=== PATIENT | female | born 2000 ===

== ENCOUNTER 2024-12-27 03:07 | Inpatient (IN) ==
[2024-12-27] MEDS ORDERED: LIDOCAINE 1% LOCAL 20 ML VIAL INFIL PRN (05:06)
[2024-12-27] MEDS ORDERED: OXYTOCIN 30 UNITS/NSS 30 UNITS/500 ML BAG IV PRN (05:06)
[2024-12-27 05:45] LABS: Hematocrit (blood only) 32.9 % (37.0-47.0); Hemoglobin 10.8 g/dl (12.0-16.0); Mean Corpuscular Hemoglobin 27.9 pg (25.0-34.0); Mean Corpuscular Hgb Conc 32.8 g/dL (32.0-36.0); Mean Platelet Volume 11.2 fL (9.4-12.4); Platelet Count 277 K/uL (130-400); RDW Standard Deviation 49.9 fL (36.4-46.3); Red Blood Count 3.87 M/uL (4.20-5.40); White Blood Count 11.72 K/ul (4.8-10.8)
[2024-12-27] MEDS: miSOPROStoL 50 MCG TAB PO ONE ×2 (10:44→13:48)
[2024-12-27] MEDS: LACTATED RINGER'S 1,000 ML IV PRN (20:49)
[2024-12-27] MEDS: OXYTOCIN 30 UNITS/NSS 30 UNITS/500 ML BAG IV PRN (20:50)
[2024-12-27] MEDS: BUTORPHANOL TARTRATE 1 MG/ML VIAL IV PRN (23:56)
--- NOTE | 2024-12-28 01:58 | Labor Progress Brief Note ---
Date of Service December 28, 2024 Assessment & Plan Admission and Anticipated Discharge Date Admission Date: December 27, 2024 Physical Exam Genitourinary: Manual OB Exam: + cervical dilation 7 cm, + cervical effacement 100%, + station 0 and + amniotic fluid ( scalp lead applied) clear OB Exam Monitor Tracing: + external FHT monitor used, + external uterine monitor used, + category I and + normal FHT variability Results & Data Vital Signs (Past 12 Hours) Vital Signs Temp Pulse Resp BP Pulse Ox 12/28/24 01:50 99 H 99 12/28/24 01:45 88 100 12/28/24 01:40 95 H 100 12/28/24 01:38 90 135/83 12/28/24 01:35 95 H 98 12/28/24 01:30 97 H 97 12/28/24 01:25 94 H 99 12/28/24 01:22 93 H 121/72 12/28/24 01:08 96 H 120/64 12/28/24 00:51 81 139/76 12/28/24 00:30 16 12/28/24 00:30 16 12/28/24 00:23 88 128/75 12/28/24 00:07 83 125/73 12/27/24 23:53 94 H 138/69 12/27/24 23:30 18 12/27/24 23:30 18 12/27/24 23:23 96 H 165/89 H 12/27/24 23:00 18 12/27/24 23:00 37.0 C 18 12/27/24 22:52 108 H 149/80 H 12/27/24 22:37 115 H 126/64 12/27/24 22:23 102 H 107/82 12/27/24 22:06 85 115/56 L 12/27/24 21:52 102 H 175/68 H 12/27/24 21:22 95 H 121/72 12/27/24 21:07 91 H 118/67 12/27/24 21:00 18 12/27/24 21:00 37.3 C 18 12/27/24 20:51 87 134/67 12/27/24 19:00 36.7 C 18 12/27/24 18:57 91 H 125/72 12/27/24 17:17 18 12/27/24 17:17 37.2 C 18 12/27/24 14:58 82 129/76 12/27/24 14:57 18 12/27/24 14:57 37.1 C 18
[2024-12-28] MEDS: LIDOCAINE 2%/EPINEPHRINE 1:200,000 20 ML PF ONE (02:32)
[2024-12-28] MEDS: BUPIVACAINE 0.25% PF 30 ML VIAL ONE (02:32)
[2024-12-28] MEDS: fentANYL 2 MCG/ML BUPIVacaine 0.125%-NSS 100ML BAG ONE (02:33)
[2024-12-28] MEDS: fentaNYL citrate PF 100 MCG/2 ML VIAL ONE (02:37)
--- NOTE | 2024-12-28 02:50 | Anesthesiology Consultation ---
Date of Service December 28, 2024 Assessment & Plan Chart Review Chart Review: Acceptable Risk for Labor Epidural Consults Requested none History Height/Weight Height: 5 ft 4 in Weight: 102.1 kg Allergies Allergy/AdvReac Type Severity Reaction Status Date / Time No Known Allergies Allergy Unverified 12/27/24 03:40 Medications Home Medications Medication Instructions Recorded Confirmed Last Taken ferrous fumarate-ascorbic 1 tab PO DAILY 12/27/24 12/27/24 Unknown acid-ascorbate sod 65 mg iron-125 mg tablet vitamin-ferrous sulfate 1 tab PO DAILY 12/27/24 12/27/24 Unknown 27 mg iron-folic acid 0.8 mg tablet Active Medications Generic Name Dose Route Start Last Admin Trade Name Freq PRN Reason Stop Dose Admin Butorphanol Tartrate 1 mg 12/27/24 10:42 12/27/24 23:56 Butorphanol Tartrate 1 Mg/Ml Vial IV 01/26/25 10:41 1 mg Q2HWA PRN Administration Pain Lactated Ringer's 1,000 mls @ 125 mls/hr 12/27/24 05:06 12/27/24 20:49 Lr IV 12/29/24 05:05 125 mls/hr .Q8H PRN Administration L&D Protocol Protocol Oxytocin 30 units in 500 mls @ 9 mls/hr 12/27/24 19:40 12/28/24 00:30 Pitocin 30 Units/Nss IV 12/29/24 19:39 0.54 units/hr .Q24H PRN 9 mls/hr Labor Induction/Augmentation Titration Protocol 0.54 UNITS/HR Past Medical History Medical History (Updated 12/27/24 @ 03:39 by Fatuma Machuca RN) Plantar fasciitis Anemia affecting Past Family History Family History (Updated 12/27/24 @ 03:43 by Fatuma Machuca, RN) Mother History of myocardial infarction Hyperlipidemia Past Surgical History Surgical History (Updated 12/27/24 @ 03:40 by Fatuma Machuca RN) No history of previous surgery Social History Smoking Status: Never smoker Hx Alcohol Use: No Hx Substance Use: No Physical Exam Vital Signs Last Vital Signs Temp 37.0 C 12/27/24 23:00 Pulse 111 H 12/28/24 02:45 Resp 16 12/28/24 00:30 BP 121/57 L 12/28/24 02:40 Pulse Ox 99 12/28/24 02:45 Testing Laboratory Results 12/27/24 05:26 Blood Type A Positive 12/27/24 05:26 Antibody Screen NEGATIVE 12/27/24 05:26
[2024-12-28] MEDS ORDERED: SODIUM CHLORIDE 0.9% PF INJ 10 ML VIAL EPI PRN (02:51)
[2024-12-28] MEDS ORDERED: fentaNYL citrate PF 100 MCG/2 ML VIAL EPI PRN (02:51)
[2024-12-28] MEDS ORDERED: diphenhydrAMINE 50 MG/ML VIAL IV PRN (02:51)
[2024-12-28] MEDS ORDERED: BUPIVACAINE 0.25% PF 30 ML VIAL EPI PRN (02:51)
[2024-12-28] MEDS ORDERED: NALOXONE HCL 0.4 MG/1 ML VIAL/CARP IV PRN (02:51)
[2024-12-28] MEDS ORDERED: NALOXONE HCL 1 MG in SODIUM CHLORIDE 0.9% 1,000 ML IV PRN (02:51)
[2024-12-28] MEDS ORDERED: ROPIVACAINE 0.5% PF 5 MG/ML 20 ML VIAL EPI PRN (02:51)
[2024-12-28] MEDS ORDERED: NALBUPHINE HCL INJ 10 MG/ML AMP IV PRN (02:51)
[2024-12-28] MEDS ORDERED: LIDOCAINE 2% MPF LOCAL 5 ML VIAL EPI PRN (02:51)
[2024-12-28] MEDS ORDERED: ePHEDrine sulfate 50 MG/ML AMP IV PRN (02:51)
[2024-12-28] MEDS: ePHEDrine sulfate 50 MG/ML AMP ONE (03:06)
[2024-12-28] MEDS: SODIUM CHLORIDE 0.9% PF INJ 10 ML VIAL ONE (03:06)
[2024-12-28] MEDS: BUPIVACAINE 0.25% PF 30 ML VIAL EPI STA (03:50)
[2024-12-28] MEDS: fentaNYL citrate PF 100 MCG/2 ML VIAL EPI STA (03:50)
[2024-12-28] MEDS: SODIUM CHLORIDE 0.9% PF INJ 10 ML VIAL EPI STA (03:50)
[2024-12-28] MEDS: LIDOCAINE 2%/EPINEPHRINE 1:200,000 20 ML PF EPI STA (03:50)
--- NOTE | 2024-12-28 09:11 | Labor Progress Brief Note ---
Date of Service December 28, 2024 Assessment & Plan Admission and Anticipated Discharge Date Admission Date: December 27, 2024 Physical Exam Genitourinary: Manual OB Exam: + cervical dilation 8 cm, + cervical effacement 100%, + station 0 and + amniotic fluid clear OB Exam Monitor Tracing: + scalp electrode used, + external uterine monitor used, + category I and + normal FHT variability Results & Data Vital Signs (Past 12 Hours) Vital Signs Temp Pulse Resp BP Pulse Ox 12/28/24 09:10 92 H 100 12/28/24 09:05 91 H 100 12/28/24 09:00 96 H 100 12/28/24 08:56 36.7 C 96 H 19 117/67 12/28/24 08:55 91 H 99 12/28/24 08:50 89 99 12/28/24 08:45 98 H 99 12/28/24 08:41 88 114/62 12/28/24 08:40 90 99 12/28/24 08:35 84 98 12/28/24 08:30 86 98 12/28/24 08:26 84 129/78 12/28/24 08:25 90 99 12/28/24 08:20 97 H 99 12/28/24 08:15 96 H 99 12/28/24 08:12 96 H 134/82 12/28/24 08:10 96 H 99 12/28/24 08:05 92 H 99 12/28/24 08:00 90 99 12/28/24 07:55 91 H 12/28/24 07:55 92 H 128/73 99 12/28/24 07:50 95 H 99 12/28/24 07:45 80 98 12/28/24 07:42 93 H 124/78 12/28/24 07:40 97 H 97 12/28/24 07:35 99 H 98 12/28/24 07:30 96 H 99 12/28/24 07:25 100 H 12/28/24 07:25 98 H 130/83 98 12/28/24 07:20 100 H 98 12/28/24 07:15 94 H 98 12/28/24 07:12 99 H 130/81 12/28/24 07:11 18 12/28/24 07:11 37.2 C 18 12/28/24 07:10 103 H 99 12/28/24 07:05 98 H 99 12/28/24 07:00 101 H 100 12/28/24 06:55 83 06 06:55 82 127/68 98 12/28/24 06:50 95 H 99 12/28/24 06:45 85 98 12/28/24 06:40 103 H 12/28/24 06:40 97 H 126/77 96 12/28/24 06:35 111 H 98 12/28/24 06:30 115 H 99 12/28/24 06:26 99 H 122/69 12/28/24 06:25 99 H 98 12/28/24 06:20 107 H 99 12/28/24 06:15 107 H 98 12/28/24 06:11 115 H 133/71 12/28/24 06:10 107 H 100 12/28/24 06:05 88 98 12/28/24 06:00 36.8 C 86 16 98 12/28/24 05:55 99 H 136/76 99 12/28/24 05:50 89 98 12/28/24 05:45 100 H 98 12/28/24 05:40 86 12/28/24 05:40 84 140/72 98 12/28/24 05:35 87 97 12/28/24 05:30 92 H 98 12/28/24 05:26 92 H 140/72 12/28/24 05:25 96 H 100 12/28/24 05:20 83 99 12/28/24 05:15 87 98 12/28/24 05:10 101 H 12/28/24 05:10 84 141/76 H 99 12/28/24 05:05 89 98 12/28/24 05:00 102 H 100 12/28/24 04:55 100 H 134/78 97 12/28/24 04:50 103 H 100 12/28/24 04:45 91 H 98 12/28/24 04:42 98 H 137/78 12/28/24 04:40 97 H 97 12/28/24 04:35 93 H 96 12/28/24 04:30 84 99 12/28/24 04:25 102 H 06 04:25 91 H 135/75 99 12/28/24 04:20 89 99 12/28/24 04:15 88 100 12/28/24 04:11 90 132/74 06/23/25 04:10 87 98 12/28/24 04:05 105 H 99 12/28/24 04:00 99 H 98 12/28/24 03:56 106 H 146/71 H 12/28/24 03:55 89 98 12/28/24 03:50 92 H 99 12/28/24 03:45 95 H 99 12/28/24 03:41 80 105/58 L 12/28/24 03:40 84 98 12/28/24 03:35 83 98 12/28/24 03:30 86 18 98 12/28/24 03:26 81 105/58 L 12/28/24 03:25 85 99 12/28/24 03:20 90 98 12/28/24 03:15 90 99 12/28/24 03:11 102 H 106/59 L 12/28/24 03:10 107 H 97 12/28/24 03:05 93 H 98 12/28/24 03:00 107 H 100 12/28/24 02:59 102 H 130/60 12/28/24 02:55 104 H 100 12/28/24 02:50 103 H 100 12/28/24 02:45 111 H 99 12/28/24 02:40 107 H 121/57 L 100 12/28/24 02:38 103 H 123/64 12/28/24 02:36 92 H 121/68 12/28/24 02:35 107 H 100 12/28/24 02:34 106 H 121/70 12/28/24 02:32 101 H 130/69 12/28/24 02:30 113 H 128/72 98 12/28/24 02:28 96 H 132/73 12/28/24 02:26 90 132/72 12/28/24 02:25 85 98 12/28/24 02:20 91 H 98 12/28/24 02:17 98 H 121/75 12/28/24 01:50 99 H 99 12/28/24 01:45 88 100 12/28/24 01:40 95 H 100 12/28/24 01:38 90 135/83 12/28/24 01:35 95 H 98 12/28/24 01:30 97 H 97 12/28/24 01:25 94 H 99 12/28/24 01:22 93 H 121/72 06/23/25 01:08 96 H 120/64 12/28/24 00:51 81 139/76 12/28/24 00:30 16 12/28/24 00:30 16 12/28/24 00:23 88 128/75 12/28/24 00:07 83 125/73 12/27/24 23:53 94 H 138/69 12/27/24 23:30 18 12/27/24 23:30 18 12/27/24 23:23 96 H 165/89 H 12/27/24 23:00 18 12/27/24 23:00 37.0 C 18 12/27/24 22:52 108 H 149/80 H 12/27/24 22:37 115 H 126/64 12/27/24 22:23 102 H 107/82 12/27/24 22:06 85 115/56 L 12/27/24 21:52 102 H 175/68 H 12/27/24 21:22 95 H 121/72
[2024-12-28] MEDS: fentANYL 2 MCG/ML BUPIVacaine 0.125%-NSS 100ML BAG EPI PRN (11:40)
[2024-12-28] MEDS ORDERED: HYDROCORTISONE ACETATE 25 MG SUPP PR PRN (16:10)
[2024-12-28] MEDS ORDERED: bisacodyL 10 MG SUPP PR PRN (16:10)
[2024-12-28] MEDS ORDERED: DIPHTHER/TETAN/PERTUS Vaccine (Tdap, Adol/Adult) 0.5mL IM ONE (16:10)
[2024-12-28] MEDS ORDERED: OXYTOCIN 30 UNITS/NSS 30 UNITS/500 ML BAG IV PRN (16:10)
--- NOTE | 2024-12-28 16:12 | Delivery Summary ---
Vaginal Delivery Summary Date of Service December 28, 2024 Vaginal Delivery Summary live male SAMSON over intact perineum with delayed cord clamping and Apgars 8/9 weight pending. Cord blood obtained followed by spontaneous delivery of intact placenta. first degree tear repaired with 3/0 Vicryl suture. QBL 104 ml. Final sponge, needle and instrument count are correct. Mom and baby stable.
[2024-12-28] MEDS: ACETAMINOPHEN 325 MG TAB PO PRN (16:19)
--- NOTE | 2024-12-28 18:09 | Anesthesia Procedure Note ---
Date of Service December 28, 2024 Anesthesia Post Epidural Note Vital Signs Vital Signs: Temp Pulse Resp BP Pulse Ox 36.8 C 101 H 20 120/67 98 12/28/24 17:08 12/28/24 17:40 12/28/24 17:08 12/28/24 17:40 12/28/24 15:50 Pain Intensity Abdomen: Pain Intensity: 3 Notes Mental Status: alert / awake / arousable and participated in evaluation Nausea / Vomiting: adequately controlled Pain: adequately controlled Airway Patency, RR, SpO2: stable & adequate BP & HR: stable & adequate Hydration State: stable & adequate Neuraxial Anesthesia: was administered and sensory block resolved Anesthetic Complications: no major complications apparent and Pt Satisfied with anesthetic care Epidural: Removed without complications and With tip intact
[2024-12-28] MEDS: DOCUSATE SODIUM 100 MG CAP PO SCH (21:16)
[2024-12-28] MEDS: IBUPROFEN 600 MG TAB PO PRN (21:16)
[2024-12-28] MEDS: BENZOCAINE 20% SPRY 85 APPLN/85 GM CAN EXT PRN (21:23)
[2024-12-29 06:11] LABS: Hematocrit (blood only) 27.3 % (37.0-47.0); Mean Platelet Volume 11.5 fL (9.4-12.4); Platelet Count 253 K/uL (130-400); RDW Coefficient of Variation 16.3 % (11.5-14.5); RDW Standard Deviation 50.4 fL (36.4-46.3); Red Blood Count 3.21 M/uL (4.20-5.40); White Blood Count 12.63 K/ul (4.8-10.8)
[2024-12-29] MEDS: FERROUS SULFATE 325 MG TAB PO SCH (07:44)
[2024-12-29] MEDS: PRENATAL VITAMIN 1 TAB PO SCH (07:44)
[2024-12-29] MEDS: ASCORBIC ACID 500 MG TAB PO SCH (07:45)
[2024-12-29] MEDS ORDERED: NON-FORMULARY MEDICATION (Prenatal Vit-Ferrous Sulfat-Fa 27 mg iron- 0.8 mg Tablet) PO SCH (09:00)
--- NOTE | 2024-12-29 10:24 | Obstetrical Progress Note ---
Date of Service December 29, 2024 Assessment & Plan (1) Normal course: Post day #1 Vaginal delivery Pt doing well No complaints Stable vitals Stable labs. H/H: 9.0/27.1 Tolerating PO food and med Pt wishes to be discharged home Results & Data Vital Signs (Past 12 Hours) Vital Signs Temp Pulse Pulse Resp BP Pulse Ox O2 Del Method 12/29/24 07:14 36.7 C 75 18 124/72 100 Room Air 12/29/24 04:10 36.3 C L 83 16 114/68 100 Room Air 12/29/24 00:50 36.4 C L 77 16 128/78 99 Room Air
[2024-12-29] MEDS: bisacodyL 5 MG TABEC PO SCH (21:26)
[2024-12-30 06:39] LABS: Hematocrit (blood only) 27.6 % (37.0-47.0)
[2024-12-30 07:47] VITALS: BP 124/75; RESP 16; TEMP 98.2; O2SAT 99
--- NOTE | 2024-12-30 11:39 | Obstetrical Progress Note ---
Date of Service December 30, 2024 Assessment & Plan Admission and Anticipated Discharge Date Admission Date: December 27, 2024 Subjective abdomen soft and no tender no calf tenderness ambulating well vaginal bleeding scant hgb 9.0 Results & Data Vital Signs (Past 12 Hours) Vital Signs Temp Pulse Pulse Resp BP Pulse Ox O2 Del Method 12/30/24 07:31 36.8 C 86 16 124/75 99 Room Air 12/30/24 00:10 36.7 C 84 18 127/78 98 Room Air
[2024-12-30 11:54] VITALS: PULSE 84
== END 2024-12-30 14:40 | disposition home or self-care (01) | DRG 807 ==
LOC: OPB 03:07 → 4S1 03:18 → 4E2 12-28 19:11